=== PATIENT | male | born 1980 | race Two or more races ===

== ENCOUNTER 2016-10-13 10:27 | Emergency (ER) | payer OTHER ==
--- NOTE | 2016-10-13 12:19 | RAD ---
History: Productive cough with chest pain. Comparison: None. Technique: 2 views Findings: The soft tissue and bony structures are unremarkable. The heart size is appropriate. No infiltrate, effusion or pneumothorax is observed. The hilar and mediastinal structures are normal. Impression: 1. A negative 2 view chest
== END 2016-10-13 12:06 | disposition home or self-care (01) ==
LOC: ED 10:27
DX: J11.1 Influenza due to unidentified influenza virus with other respiratory manifestations (principal); Z87.891 Personal history of nicotine dependence